=== PATIENT | female | born 1960 | race Caucasian/White ===

== ENCOUNTER → 2021-08-15 | Outpatient (CLI) | payer BC ==
[2021-08-15] VITALS (11 sets, daily range): BP systolic 114–150; BP diastolic 55–97; PULSE 49–69; TEMP 98.4
[~2021-08-15] VITALS: Ht 167.6 cm; Wt 98.2 kg
[~2021-08-15] MED LIST: CALCIUM 600 MG1 EAC2 PO; CLARITIN 1010 MG/TAB PO; DUO-KAPS1 CAP PO; EFFEXOR 75M75 MG/TAB PO; PREMARIN 0.60.625 M1 PO; VITAMINC1000TA PO; ZYRTEC 10MG10 MG PO
[2021-08-15 11:09] LABS: INR 1.1 (0.8-3.0); PROTHROMBIN TIME 12.3 SECONDS (9.7-12.8)
== END ==
LOC: COL.RAD 09:44
PROVIDERS: Internal Medicine Gastroenterology
DX: K76.0 Fatty (change of) liver, not elsewhere classified (principal); R74.8 Abnormal levels of other serum enzymes
CPT/HCPCS: 32109